=== PATIENT | female | born 1990 | race Caucasian/White ===

== ENCOUNTER 2016-08-02 11:51 | Inpatient (IN) | payer BC ==
[~2016-08-02] VITALS: Ht 160 cm; Wt 97.5 kg
[2016-08-02] VITALS (18 sets, daily range): BP systolic 98–160; BP diastolic 50–90
[2016-08-02 13:39] LABS: EOSINOPHIL (%) 0.2 % (0-5); HEMATOCRIT 31.2 % (36.0-46.0); IMMATURE GRANULOCYTE (%) 0.4 % (0.0-0.7); LYMPHOCYTE COUNT 1.3 K/uL (1.0-2.8); MCH 28.3 PG (29.0-34.0); MCHC 32.7 G/DL (30.0-36.0); MCV 86.4 FL (83-99); MONOCYTE (%) 4.2 % (3-12); MONOCYTE COUNT 0.5 K/uL (0-0.8); NEUTROPHIL (%) 83.4 % (45-76); NEUTROPHIL COUNT 9.5 K/uL (1.8-6.4); PLATELET COUNT 243 K/uL (156-360); RBC DIS.WIDTH-CV 13.9 % (11.8-14.6); RBC DIS.WIDTH-SD 43.8 % (39-53); RED BLOOD COUNT 3.61 M/uL (3.80-5.20); WHITE BLOOD COUNT 11.3 K/uL (4.1-10.2)
[2016-08-03] VITALS (16 sets, daily range): BP systolic 108–180; BP diastolic 57–87
[2016-08-03] MEDS ORDERED: IBUPROFEN800 MG PO (08:54)
[2016-08-04 07:47] VITALS: BP 120/67
[2016-08-04 15:46] VITALS: BP 127/80
== END 2016-08-04 19:19 | disposition home or self-care (01) | DRG 775 ==
LOC: LDRP-OP 11:51 → 2WEST 11:52 → LDRP-OP 08-27 11:55
PROVIDERS: Obstetrics & Gynecology
PROC: 3E0K7GC Introduction of Other Therapeutic Substance into Genitourinary Tract, Via Natural or Artificial Opening (ICD-10-PCS; 2016-08-02)
PROC: 00HU33Z Insertion of Infusion Device into Spinal Canal, Percutaneous Approach (ICD-10-PCS; 2016-08-02)
PROC: 3E033VJ Introduction of Other Hormone into Peripheral Vein, Percutaneous Approach (ICD-10-PCS; 2016-08-02)
PROC: 3E0R3CZ (ICD-10-PCS; 2016-08-02)
PROC: 10E0XZZ Delivery of Products of Conception, External Approach (ICD-10-PCS; principal; 2016-08-03)
DX: O42.02 Full-term premature rupture of membranes, onset of labor within 24 hours of rupture (principal); O36.0930 Maternal care for other rhesus isoimmunization, third trimester, not applicable or unspecified; O99.214 Obesity complicating childbirth; E66.9 Obesity, unspecified; Z68.33 Body mass index [BMI] 33.0-33.9, adult; Z37.0 Single live birth; Z3A.40 40 weeks gestation of pregnancy
CPT/HCPCS: 83030; 85025; 86850; 86900; 86901; C1755; G0378; J2790; J3010; J7120